=== PATIENT | female | born 1950 | race Caucasian/White ===

== ENCOUNTER 2016-12-16 11:42 | Emergency (ER) | payer MEDICARE ==
[~2016-12-16] VITALS: Ht 154.9 cm; Wt 75.0 kg
[~2016-12-16 11:42] MED LIST: DOXY100T PO; LUTE20CA PO; MECL25CH PO; OMEGCAP21 PO; ROSU40 PO; ST J81CH PO; TAB-TAB PO
[2016-12-16 11:53] VITALS: BP 173/89; PULSE 111; RESP 16; TEMP 99.3; O2SAT 97
[2016-12-16] MEDS ORDERED: VITA1000 PO (12:03)
[2016-12-16] MEDS ORDERED: ASPI81CH37 CHEW (12:03)
[2016-12-16] MEDS ORDERED: ROSU5 PO (12:03)
[2016-12-16] MEDS ORDERED: OMEGCAP PO (12:03)
[2016-12-16] MEDS ORDERED: LUTE20CA PO (12:03)
[2016-12-16] MEDS ORDERED: MULTTAB67 PO (12:03)
--- NOTE | 2016-12-16 12:06 | PD ---
HPI Chief Complaint: Laceration/Skin Injury Time Seen by Provider: 12:01 Travel History International Travel<30 days: No Contact w/Intl Traveler<30days: No Traveled to known affect area: No History of Present Illness HPI 66-year-old female here with complaint of laceration. Patient was cleaning her Ninja filler blender when she lacerated the right third finger on one of the blades. This happened approximately 30 minutes prior to arrival. She notes bleeding. No loss of function. PFSH Past Medical History Hx Anticoagulant Therapy: Yes (81 mg asa) Cardiovascular Problems: Yes (paracardial effusion) High Cholesterol: Yes Diminished Hearing: No Hypertension: Yes ?: Not Social History Alcohol Use: No Tobacco Use: No Substance Use: No Allergies-Medications (Allergen,Severity, Reaction): Coded Allergies: Erythromycin (Verified Allergy, Unknown, Tachycardia, 12/16/16) Morphine (Verified Allergy, Unknown, Itching, 12/16/16) Penicillin (Verified Allergy, Unknown, Rash, 12/16/16) Vancomycin (Verified Allergy, Unknown, Anaphylaxis, 12/16/16) Reported Meds & Prescriptions Reported Meds & Active Scripts Active Reported Multiple Vitamin 1 Tab 1 Tab PO DAILY Lutein 20 Mg Cap 20 Mg PO DAILY Vitamin D-1000 (Cholecalciferol) 1,000 Unit Tab 2,000 Units PO DAILY Crestor (Rosuvastatin Calcium) 5 Mg Tab 5 Mg PO DAILY [place]-3 Fish Oil/Vitamin (Fish Oil-Cholecalciferol) 1,000-1,000 Mg Cap 2 Cap PO DAILY Aspirin Low Dose (Aspirin) 81 Mg Chew 81 Mg CHEW DAILY Review of Systems General / Constitutional: No: Fever Cardiovascular: No: Chest Pain or Discomfort Respiratory: No: Shortness of Breath Musculoskeletal: Positive: Pain Skin: Positive Other Neurologic: No: Weakness Physical Exam Narrative GENERAL: Well-appearing female in no acute distress SKIN: Warm and dry. HEAD: Normocephalic. EYES: No scleral icterus. No injection or drainage. CARDIOVASCULAR: Slightly tachycardic, normalized upon recheck RESPIRATORY: No accessory muscle use. MUSCULOSKELETAL: Normal gait. There is a 5 mm laceration along the volar aspect of the right third digit, just distal to the DIP. Flexion and extension of the DIP, PIP, MCP intact. Laceration is superficial, hemostatic. NEUROLOGICAL: Awake and alert. Normal speech. PSYCHIATRIC: Appropriate mood and affect; insight and judgment normal. Data Data Last Documented VS Vital Signs Date Time Temp Pulse Resp B/P Pulse Ox O2 Delivery O2 Flow Rate FiO2 12/16/16 11:53 99.3 111 16 173/89 97 Orders Tetanus/Diphtheria Tox Adult (Tetanus/Di (12/16/16 12:15) MDM Medical Decision Making Medical Screen Exam Complete: Yes Emergency Medical Condition: Yes Medical Record Reviewed: Yes Differential Diagnosis 66-year-old female here with complaint of laceration. Laceration is superficial and does not have any neurovascular involvement. Narrative Course Patient given tetanus immunization. Laceration repaired. Procedures Procedure Narrative LACERATION LOCATION: Right third digit, distal phalanx LENGTH: 5 mm NUMBER OF STITCHES/ELIDA: Dermabond REPAIR: The area of the laceration was prepped. The wound was copiously irrigated and explored without evidence of foreign body, tendon injury or neurovascular injury. The wound was closed using Dermabond. This was a single layer repair. A sterile dressing was applied. The patient was advised to keep the dressing clean and dry. Patient tolerated the procedure well. Diagnosis Primary Impression: Laceration of finger Qualified Code: S61.219A - Laceration of finger, initial encounter Referrals: Primary Care Physician as needed Patient Instructions: Finger Laceration (ED), General Instructions Additional Instructions: Tylenol, ibuprofen as needed for pain. Med/Other Pt SpecificInfo: No Change to Meds Disposition: 01 DISCHARGE HOME Condition: Stable Carly Casarez MD Dec 16, 2016 12:06
[2016-12-16] MEDS ORDERED: TETANUS/DIPHTHERIA TOXOID ADULT 0.5 ML VIAL IM ONE (12:15)
== END 2016-12-16 12:26 | disposition home or self-care (01) ==
LOC: PHEFT 11:42
DX: S61.212A Laceration without foreign body of right middle finger without damage to nail, initial encounter (principal); W31.89XA Contact with other specified machinery, initial encounter; Z23 Encounter for immunization
CPT/HCPCS: 12001; 90471; 90714

== ENCOUNTER → 2017-09-09 | Outpatient (CLI) | payer MEDICARE ==
[~2017-09-09] MED LIST changes: +ASPI-146 PO; +ASPI81CH6 CHEW; +COMMODE 3-IN-11 MIS; -DOXY100T PO; +ENOX40IN SQ; +LISI2.5T3 PO; -MECL25CH PO; +MULTTAB67 PO; +NORC5TAB PO; +OMEGCAP PO; -OMEGCAP21 PO; -ROSU40 PO; +ROSU5 PO; -ST J81CH PO; -TAB-TAB PO; +VITA1000 PO; +WALKER WHEELS/F1 MIS
== END ==
LOC: CPRE 08:47
PROVIDERS: ATTEND Orthopaedic Surgery
DX: Z00.00 Encounter for general adult medical examination without abnormal findings (principal)